=== PATIENT | female | born 1955 | race Caucasian/White ===

== ENCOUNTER 2022-11-11 06:30 | Day surgery (SDC) | payer BC, OTHER ==
[2022-11-11] MEDS ORDERED: Ringers Lactate 1,000 ML IV ONE (07:08)
[2022-11-11 07:42] VITALS: O2SAT 100
[2022-11-11] MEDS ORDERED: propofoL 200 MG/20 ML VIAL IV ONE ×2 (08:02→08:03)
[2022-11-11] MEDS ORDERED: LIDOCAINE 1% MPF 5 ML VIAL ONE (08:03)
[2022-11-11 10:10] VITALS: BP 135/69; TEMP 98
== END 2022-11-11 09:22 | disposition home or self-care (01) ==
LOC: PRE 06:30
PROVIDERS: ATTEND Internal Medicine Gastroenterology
PROC: 0DBK8ZX Excision of Ascending Colon, Via Natural or Artificial Opening Endoscopic, Diagnostic (ICD-10-PCS; 2022-11-11)
PROC: 0DBN8ZX Excision of Sigmoid Colon, Via Natural or Artificial Opening Endoscopic, Diagnostic (ICD-10-PCS; 2022-11-11)
PROC: 0DB58ZX Excision of Esophagus, Via Natural or Artificial Opening Endoscopic, Diagnostic (ICD-10-PCS; principal; 2022-11-11 07:30)
PROC: 0DB68ZX Excision of Stomach, Via Natural or Artificial Opening Endoscopic, Diagnostic (ICD-10-PCS; 2022-11-11 07:30)
DX: Z12.11 Encounter for screening for malignant neoplasm of colon (principal); Z86.010 Personal history of colon polyps; K22.70 Barrett's esophagus without dysplasia; Z80.0 Family history of malignant neoplasm of digestive organs; K64.8 Other hemorrhoids; D12.2 Benign neoplasm of ascending colon; K29.50 Unspecified chronic gastritis without bleeding; K21.00 Gastro-esophageal reflux disease with esophagitis, without bleeding; K21.9 Gastro-esophageal reflux disease without esophagitis; R12 Heartburn; K44.9 Diaphragmatic hernia without obstruction or gangrene; K29.60 Other gastritis without bleeding; K31.7 Polyp of stomach and duodenum
CPT/HCPCS: 88312; 88305; 43239; 45380; J2704 ×2; J2001; J7120

== ENCOUNTER 2024-02-10 16:29 | Observation (INO) | payer BC, OTHER ==
[2024-02-10 17:55] VITALS: O2SAT 100; BMI 21.2
[2024-02-10 17:58] LABS: Absolute Eosinophils 0.1 K/uL (0-0.5); Absolute Lymphocytes (CBC) 1.2 K/uL (0.7-4.9); Absolute Monocytes 1.7 K/uL (0.1-1.3); Absolute Neutrophil 9.9 K/uL (1.8-8.0); Basophils % 0.2 % (0-1.3); Eosinophils % 0.8 % (0-4.4); Hematocrit 32.8 % (36.0-45.0); Hemoglobin 10.8 g/dL (12.0-15.0); Lymphocytes % 9.4 % (15.3-44.8); MCH 25.8 pg (27.0-35.0); MCV 78.1 fL (80-100); MPV 7.6 fL (7.6-11.3); Monocytes % 13.2 % (3.3-12.3); Neutrophils % 76.4 % (41.7-73.7); Nucleated Red Blood Cells % 0.1 % (0-0); Platelets 388 thou/uL (152-406); Red Cell Distribution Width 15.5 % (12.1-15.2)
[2024-02-10 17:59] LABS: Protime INR 1.35
[2024-02-10] MEDS ORDERED: ONDANSETRON 4 MG (ODT) TAB PO PRN (18:00)
[2024-02-10] MEDS ORDERED: ACETAMINOPHEN 325 MG TABLET PO PRN (18:00)
[2024-02-10] MEDS ORDERED: ONDANSETRON 4 MG/2 ML VIAL IV PRN (18:00)
[2024-02-10] MEDS ORDERED: LOPERAMIDE HCL 2 MG CAPSULE PO PRN (18:00)
[2024-02-10] MEDS ORDERED: DIPHENHYDRAMINE 25 MG TAB/CAP PO PRN (18:00)
[2024-02-10] MEDS ORDERED: POLYETHYL GLY 3350 17 GM/DOSE PO PRN (18:00)
[2024-02-10] MEDS: NACHLORIDE 0.45% 1,000 ML IV SCH (18:03)
[2024-02-10 18:36] LABS: Albumin 2.5 g/dL (3.4-5.0); Albumin/Globulin Ratio 0.6 (1.1-1.8); Anion Gap 11.2 mEq/L (5.0-15.0); Bilirubin Direct 0.3 mg/dL (0-0.2); Bilirubin Indirect, Calculated 0.4 mg/dL (0.2-0.8); Bilirubin Total 0.7 mg/dL (0.2-1.0); Globulin 4.2 g/dL (2.3-3.5); Magnesium 2.1 mg/dL (1.6-2.4); Phosphorus 2.8 mg/dL (2.5-4.9); Potassium 3.2 mEq/L (3.5-5.1); Protein, Total 6.7 g/dL (6.4-8.2); Thyroid Stimulating Hormone 0.936 uIU/mL (0.358-3.740)
[2024-02-10 18:53] LABS: Urine Bacteria None Seen /HPF (<20); Urine Bilirubin NEGATIVE (Negative); Urine Blood Negative (Negative); Urine Clarity Turbid (Clear); Urine Color Light-Yellow (Yellow); Urine Culture Reflex Order NOT NEEDED; Urine Glucose NEGATIVE (Negative); Urine Ketones 1+ (Negative); Urine Microscopic Reflex YN ORDER UMIC; Urine Mucus Slight /HPF (None Seen); Urine Nitrite NEGATIVE (Negative); Urine Protein TRACE (Negative); Urine RBC <5 /HPF (None Seen); Urine Urobilinogen Normal (Normal); Urine pH 6.5 (5.0-7.0)
[2024-02-10 20:07] LABS: Anisocytosis 1+; Blood Morphology Comment NOTED (NOT SEEN); Platelet Estimate ADEQ; Poikilocytosis 2+; White Blood Cell Scan OK (OK)
--- NOTE | 2024-02-10 21:02 | RAD REPORT ---
EXAM: CT Thorax W/ Con CLINICAL INDICATION: Female, 68 years old. [facility] MAIN Direct Admission N TECHNIQUE: Routine CT scan of the chest with intravenous contrast. One or more of the following dose reduction techniques were used: Automated exposure control, adjustment of the mA and/or kV according to patient size, and/or iterative reconstruction. Unless otherwise specified, incidental fi ndings do not require dedicated imaging follow-up. COMPARISON: No prior exam. FINDINGS: LUNGS: Airways are clear. Changes of honeycombing limited to the lung periphery, especially in the ba bobbi regions and to lesser extent the dependent lower lobes. No bronchiectasis or cystic changes. No nodules. PLEURA: No pleural effusion. No pneumothorax. MEDIASTINUM AND LYMPH NODES: Incidentally noted apparent right subclavian artery No mediastinal mass or fluid collection. Normal size mediastinal, hilar, and axillary lymph nodes. OSSEOUS STRUCTURES AND CHEST WALL: Intact. UPPER ABDOMEN: No significant abnormalities. IMPRESSION: Findings suggestive of interstitial pneumonia pattern, which can be seen with usual interstitial pneu monia the appropriate clinical setting. No discrete consolidation or other suspicious findings.
[2024-02-11] MEDS: METHYLPREDNISOLONE 40 MG INJ IV SCH (00:30)
[2024-02-11] MEDS: COSYNTROPIN 0.25 MG VIAL IV SCH (07:57)
[2024-02-11 08:41] LABS: Absolute Lymphocytes (CBC) 0.7 K/uL (0.7-4.9); Absolute Monocytes 0.3 K/uL (0.1-1.3); Absolute Neutrophil 7.7 K/uL (1.8-8.0); Basophils % 0.2 % (0-1.3); Eosinophils % 0.1 % (0-4.4); Hematocrit 35.1 % (36.0-45.0); Hemoglobin 11.6 g/dL (12.0-15.0); Lymphocytes % 7.9 % (15.3-44.8); MCH 25.8 pg (27.0-35.0); MCHC 33.2 g/dL (32.0-36.0); MCV 77.6 fL (80-100); MPV 7.3 fL (7.6-11.3); Monocytes % 3.7 % (3.3-12.3); Neutrophils % 88.1 % (41.7-73.7); Nucleated Red Blood Cells % 0.2 % (0-0); Platelets 447 thou/uL (152-406); RBC Red Blood Cell Count 4.52 M/uL (3.86-4.86); Red Cell Distribution Width 15.9 % (12.1-15.2)
[2024-02-11 08:53] LABS: Anion Gap 9.4 mEq/L (5.0-15.0); Potassium 3.4 mEq/L (3.5-5.1)
[2024-02-11] MEDS: Estradiol [Estrace] 42.5 GM Cream.Appl VAG SCH (09:00)
[2024-02-11] MEDS: ENOXAPARIN 40 MG/0.4 ML SQ SCH (09:29)
[2024-02-11] MEDS: AZITHROMYCIN IV 500 MG in NA CHLORIDE 0.9% 250 ML IVPB SCH (09:29)
--- NOTE | 2024-02-11 15:57 | P.DS ---
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 SHE HAS BEEN WEAK. SHE HAD URINARY PAIN BUT UA WAS NEGATIVE. SHE SAW A PA AT TELE RN OFFICE AND GOT MACRODANTIN. SHE GOT WEAKER AFTER THAT. WHEN I SAW HER SHE HAD DIFFUSE BILATERAL RALES. SHE IS CACHETIC AND HAS LOST MORE THAN 10 LBS. I ADMITTED HER FOR DEBILITY, BACK PAIN. CT SCAN SHOWED INTERSTITIAL PNEUMONIA. SHE IMPROVED ON ZITHROMAX AND STEROIDS. THIS COULD BE ACUTE EFFECT OF MACRODANTIN SHE ALREADY IS PRONE TO IT BECAUSE OF PSS. SHE IS STABLE. SHE WANTS TO GO HOME. I AM WAITING FOR MRI. AFTER THAT SHE WILL GO HOME ON TWO ABOVE MEDS MENTIONED. FU IN OFFICE IN ONE WEEK. Vital Signs/Physical Exam: Temp Pulse Resp BP Pulse Ox 97.9 F 94 H 14 101/53 L 100 02/11/24 12:00 02/11/24 12:00 02/11/24 12:00 02/11/24 12:00 02/11/24 12:00 Laboratory Data at Discharge: WBC 8.70 thou/uL (4.3-10.9) 02/11/24 08:30 Hgb 11.6 g/dL (12.0-15.0) L 02/11/24 08:30 Hct 35.1 % (36.0-45.0) L 02/11/24 08:30 Plt Count 447 thou/uL (152-406) H 02/11/24 08:30 PT 15.0 SECONDS (9.4-12.5) H 02/10/24 17:43 INR 1.35 02/10/24 17:43 APTT 28.5 SECONDS (24.3-36.9) 02/10/24 17:43 Sodium 130 mEq/L (136-145) L 02/11/24 08:30 Potassium 3.4 mEq/L (3.5-5.1) L 02/11/24 08:30 BUN 15 mg/dL (7-18) 02/11/24 08:30 Creatinine 0.56 mg/dL (0.55-1.02) 02/11/24 08:30 Glucose 154 mg/dL (74-106) H 02/11/24 08:30 Phosphorus 2.8 mg/dL (2.5-4.9) 02/10/24 17:43 Magnesium 2.1 mg/dL (1.6-2.4) 02/10/24 17:43 Total Bilirubin 0.7 mg/dL (0.2-1.0) 02/10/24 17:43 AST 26 U/L (15-37) 02/10/24 17:43 ALT 76 U/L (13-56) H 02/10/24 17:43 Alkaline Phosphatase 567 U/L (45-117) H 02/10/24 17:43 Home Medications: Estradiol [Estrace] 0.01 % VG DAILY 02/10/24 Rosuvastatin [Crestor*] 10 mg PO BEDTIME 02/10/24 Azithromycin Tab [Zithromax*] 250 mg PO ZPAK #1 ben 02/11/24 Methylprednisolone [Medrol dosepack] 4 mg PO DIRECTED #1 ben 02/11/24 New Medications: Methylprednisolone [Medrol dosepack] 4 mg PO DIRECTED #1 ben Azithromycin Tab [Zithromax*] 250 mg PO ZPAK #1 ben Followup: Branden Haynes MD [Primary Care Provider] - 1-2 Weeks
--- NOTE | 2024-02-11 19:47 | RAD REPORT ---
EXAMINATION: MRI LUMBAR SPINE WITHOUT CONTRAST CLINICAL INDICATION: Radiculopathy TECHNIQUE: Multiplanar multisequence MR images were obtained of the lumbar spine without intravenous contrast. Unless otherwise specified, incidental findings do not require dedicated imaging follow-up. [id number]. COMPARISON: No prior exam. FINDINGS: T12-L1, L1-2 and L2-3 unremarkable Mild anterior subluxation L3 on L4. Mild facet hypertrophy is present. Small disc bulge. Mild narrowi ng of the right anterior aspect of the thecal sac. Neural foramina are patent L4-5 and L5-S1 unremarkable No significant abnormal signal within the bones. IMPRESSION: Mild spondylosis L3-4.
[2024-02-11] MEDS ORDERED: ROSUVASTATIN 10 MG TAB PO SCH (21:00)
[2024-02-11 21:44] VITALS: BP 114/56; TEMP 97.6
[2024-02-16 17:07] LABS: 1,25 Dihydroxy Vitamin D3 147 pg/mL; Vitamin D 1,25-Dihydroxy Total 147 pg/mL (18-72); Vitamin D,1,25-OH2, D2 <8 pg/mL
== END 2024-02-11 20:45 | disposition home or self-care (01) ==
LOC: 2ND 16:29
PROVIDERS: ADMIT Internal Medicine; ATTEND Internal Medicine
DX: J18.9 Pneumonia, unspecified organism (principal); R53.81 Other malaise; R62.7 Adult failure to thrive; R64 Cachexia; E46 Unspecified protein-calorie malnutrition; R63.0 Anorexia; M47.896 Other spondylosis, lumbar region; M54.9 Dorsalgia, unspecified; M34.1 CR(E)ST syndrome; Z68.21 Body mass index [BMI] 21.0-21.9, adult; M81.0 Age-related osteoporosis without current pathological fracture
CPT/HCPCS: 85025 ×2; 81001; 80048 ×2; 36415; 83735; 84100; 85610; 80076; 85730; 82652; 84443; 82607; 82533 ×4; 82024; 71260; 72148; Q9967; J1650; J7050; J2919 ×4; G0379; G0378 ×2; J0834